=== PATIENT | male | born 1985 | race Caucasian/White ===

== ENCOUNTER 2021-03-05 17:08 | Emergency (ER) | payer OTHER ==
[2021-03-05 17:24] VITALS: BP 154/105; PULSE 67; TEMP 97; BMI 26.5
[2021-03-05] MEDS ORDERED: morphine CARPU-JECT 4 MG/1 ML DISP.SYRIN IVPUSH ONE (17:55)
[2021-03-05] MEDS ORDERED: morphine SULFATE 4 MG/ML VIAL ONE (17:55)
[2021-03-05 18:17] LABS: BASO % 0.3 % (0-2.0); EOS % 1.3 % (0-4.5); HEMATOCRIT 42.2 % (35.4-49); HEMOGLOBIN 14.6 GM/dL (11.7-16.9); LYMPH % 7.7 % (8-40); MCHC 34.6 g/dl (32.0-35.9); MEAN CELL VOLUME 92.5 fl (80-96); MONO % 6.1 % (3.8-10.2); NEUT % 84.6 % (42.8-82.8); PLATELET COUNT 201 10^3/uL (134-434); RBC 4.57 M/mm3 (4.00-5.60); WHITE BLOOD COUNT 9.4 K/mm3 (4.0-10.0)
[2021-03-05 18:37] LABS: ALBUMIN 4.4 g/dl (3.4-5.0); BLOOD UREA NITROGEN 11.5 mg/dL (7-18); CALCIUM 9.1 mg/dL (8.5-10.1)
[2021-03-05 18:40] LABS: CREATININE 1.3 mg/dL (0.55-1.3)
[2021-03-05 18:42] LABS: BILIRUBIN,TOTAL 0.4 mg/dL (0.2-1); TOT PROT 7.8 g/dl (6.4-8.2)
[2021-03-05 20:57] LABS: PH,URINE 7.5 (5.0-8.0); URINE APPEARANCE Clear; URINE BILIRUBIN Negative (NEGATIVE); URINE COLOR Yellow; URINE GLUCOSE (UA) Negative (NEGATIVE); URINE KETONE Trace (NEGATIVE); URINE LEUK ESTERASE Negative (NEGATIVE); URINE NITRITE Negative (NEGATIVE); URINE PROTEIN Negative (NEGATIVE); URINE UROBILINOGEN 0.2 mg/dL (0.2-1.0)
[2021-03-05 21:19] LABS: HYALINE CASTS 2.66 /uL (0-3.1); URINE BACTERIA 11.1 /uL (0-1359); URINE RBC 79.7 /uL (0-23.9); URINE WBC 9.2 /uL (0-25.8)
== END 2021-03-05 21:58 | disposition home or self-care (01) ==
LOC: JER 17:08
PROC: 3E033GC Introduction of Other Therapeutic Substance into Peripheral Vein, Percutaneous Approach (ICD-10-PCS; principal; 2021-03-05)
DX: N20.0 Calculus of kidney (principal)
CPT/HCPCS: 36415; 74176-TC; 76870-TC; 80053; 81003; 85025; 87086; 99285-25